=== PATIENT | female | born 1990 | race African-American/Black ===

== ENCOUNTER 2017-11-16 10:29 | Emergency (ER) | payer BC, OTHER ==
[~2017-11-16] VITALS: Ht 162.6 cm; Wt 74.8 kg
[~2017-11-16 10:29] MED LIST: BACTRIM DS TAB1 EAC1 ORAL; NORCO 5-325 TA1 EACH ORAL
[2017-11-16 11:17] LABS: APPEARANCE,URINE TURBID; BILIRUBIN, URINE NEGATIVE (NEGATIVE); GLUCOSE, URINE (UA) NEGATIVE (NEGATIVE); KETONES,URINE NEGATIVE (NEGATIVE); LEUKOCYTE ESTERASE ,URINE 1+ (NEGATIVE); NITRITE,URINE NEGATIVE (NEGATIVE); PH,URINE 6 (4.5-8.0); PROTEIN,URINE 1+ (NEGATIVE); UROBILINOGEN,URINE NORMAL MG/DL (0.0-1.0)
[2017-11-16 11:18] LABS: COLOR,URINE YELLOW
[2017-11-16 12:33] VITALS: BP 128/75
--- NOTE | 2017-11-16 12:37 | Emergency Room Report ---
History of Present Illness General Chief Complaint: Complications Source: Patient Present Illness [facility] Patient present with complaints of vaginal spotting and cramping Reports that she had ectopic last March which she had surgery for Patient did have a menstrual cycle last month however sounds to be different than her usual menstrual cycle Denies any vomiting denies any fevers or chills Denies any low back pain Denies any recent fall or trauma Allergies: Coded Allergies: PENICILLINS (Unverified Allergy, Unknown, 10/19/14) Patient History Past Medical History: see triage record Pertinent Family History: none Reviewed Nursing Documentation: PMH: Agreed; PSxH: Agreed Nursing Documentation-PMH Past Medical History: No History, Except For Hx Cardiac Problems: No - ECTOPIC Review of Systems All Other Systems: negative except mentioned in HPI Physical Exam Vital Signs Date Time Temp Pulse Resp B/P (MAP) Pulse Ox O2 Delivery O2 Flow Rate FiO2 11/16/17 10:31 97.7 96 20 132/77 99 Room Air 97.7 Sp02 EP Interpretation: reviewed, normal General Appearance: well appearing, no apparent distress Head: normocephalic, atraumatic Eyes: bilateral eye PERRL, bilateral eye EOMI ENT: hearing grossly normal, normal pharynx, TMs + canals normal, uvula midline Neck: full range of motion, supple, no meningismus, no bony tend Respiratory: lungs clear, normal breath sounds, no rhonchi, no respiratory distress, no retraction, no accessory muscle use Cardiovascular #1: normal peripheral pulses, regular rate, rhythm, no edema, no gallop, no JVD, no murmur Gastrointestinal: normal bowel sounds, non tender, soft, no mass, no organomegaly, non-distended, no guarding, no hernia, no pulsatile mass, no rebound Genitourinary: no CVA tenderness Musculoskeletal: normal inspection Neurologic: oriented x3, responsive, 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, motor strength/ tone normal, sensory intact Psychiatric: mood/affect normal Skin: normal color, no rash, warm/dry, palpation normal Lymphatic: normal inspection, no adenopathy Medical Decision Making Diagnostic Impression: Primary Impression: abnormal vaginal bleeding Additional Impressions: possible early ectopic vs miscarriage ER Course With the patient's history and examination, multiple differentials considered, including but not limited to , ectopic , ovarian torsion, gastritis, cholecystitis, pancreatitis, appendicitis Patient's urine sample was positive for Hormone level shows 149 Patient does have ultrasound obtained which does not show any obvious acute pathology Unfortunately multiple differentials still remain possible Patient's last menstrual cycle could potentially have been a missed miscarriage Ectopic cannot be fully ruled out Early cannot be fully ruled out Patient requires repeat beta hCG performance along with serial ultrasounds This was discussed with the patient, she appeared agitated, and upset Unfortunately I cannot provide her a clear-cut diagnosis at this time I did try my best to explain that And made the follow-up explanation as best I could as well Patient provided with list of clinics and will return with any worsening symptoms Labs Test 11/16/17 10:40 11/16/17 10:50 Urine Color Yellow Urine Appearance Turbid Urine pH 6 (4.5-8.0) Urine Specific [place] 1.020 (1.005-1.035) Urine Protein 1+ (NEGATIVE) Urine Glucose (UA) Negative (NEGATIVE) Urine Ketones Negative (NEGATIVE) Urine Occult Blood 3+ (NEGATIVE) Urine Nitrite Negative (NEGATIVE) Urine Bilirubin Negative (NEGATIVE) Urine Urobilinogen Normal MG/DL (0.0-1.0) Urine Leukocyte Esterase 1+ (NEGATIVE) Urine RBC 5-10 /HPF (0 - 2) Urine WBC 2-4 /HPF (0 - 2) Urine Squamous Epithelial Cells Many /LPF (NONE/OCC) Urine Bacteria Few /HPF (NONE) Urine Mucus Moderate /LPF (NONE/OCC) Urine HCG, Qualitative Positive (NEGATIVE) Human Chorionic Gonadotropin, Quant 149 mIU/mL (1-6) CT/MRI/US Diagnostic Results CT/MRI/US Diagnostic Results : Impression Pelvic ultrasound:IMPRESSION: Suspicion of pelvic congestion syndrome. Correlate clinically. No intrauterine . Consider follow up quantitative beta hCG and ultrasound. Fundal uterine fibroid Last Vital Signs Date Time Temp Pulse Resp B/P (MAP) Pulse Ox O2 Delivery O2 Flow Rate FiO2 11/16/17 12:33 97.7 69 18 128/75 99 Room Air 97.7 Status: improved Disposition: HOME, SELF-CARE Condition: Stable Referrals: NOT CHOSEN [facility]/MD,REFERRING (PCP) Patient Instructions: Threatened Miscarriage, [id number], First Trimester of , [id number], Ectopic , Pqif-qy-Prob, Dysfunctional Uterine Bleeding Additional Instructions: please note that you have been provide multiple possible diagnoses. Your hormone level is 149 This requires to be repeated in 3-4 days With a repeat ultrasound for determination and more definitive diagnosis Heidi Sawant DO November 16, 2017 12:37
--- NOTE | 2017-11-16 13:49 | Diagnostic Imaging Report ---
Indication: Positive test. Vaginal spotting Technique: Grayscale and duplex Doppler imaging of the pelvis performed utilizing a transabdominal scan and endovaginal scan. Comparison: None Findings: There is no intrauterine demonstrated. The endometrium is moderately thick measuring 18 mm. There is a partially calcified mass in the fundus measuring 1.5 cm. This is consistent with a fibroid. There is a fairly marked vascularity as demonstrated by color flow images around the uterus and within the pelvis. Consider pelvic congestion syndrome. The ovaries are seen and appear normal bilaterally. Uterus measures 7.5 x 5.7 x 4.1 cm. Right ovary 1.8 x 2.5 x 1.3 cm. Left ovary 2.9 x 2.7 x 1.7 cm. IMPRESSION: Suspicion of pelvic congestion syndrome. Correlate clinically. No intrauterine . Consider follow up quantitative beta hCG and ultrasound. Fundal uterine fibroid
== END 2017-11-16 12:36 | disposition home or self-care (01) ==
LOC: EMR 11:57
DX: N93.9 Abnormal uterine and vaginal bleeding, unspecified (principal); Z88.0 Allergy status to penicillin; D25.9 Leiomyoma of uterus, unspecified
CPT/HCPCS: 36415; 76801; 81003; 81025; 84702; 99284

== ENCOUNTER 2018-03-14 09:12 | Emergency (ER) | payer SELFPAY ==
[~2018-03-14] VITALS: Ht 162.6 cm; Wt 72.6 kg
[2018-03-14 09:17] VITALS: BP 119/67
[2018-03-14] MEDS ORDERED: NKM (09:19)
[2018-03-14 09:43] LABS: APPEARANCE,URINE SLIGHTLY CLOUDY; BILIRUBIN, URINE NEGATIVE (NEGATIVE); COLOR,URINE PALE YELLOW; GLUCOSE, URINE (UA) NEGATIVE (NEGATIVE); KETONES,URINE NEGATIVE (NEGATIVE); LEUKOCYTE ESTERASE ,URINE 3+ (NEGATIVE); NITRITE,URINE NEGATIVE (NEGATIVE); PH,URINE 6 (4.5-8.0); PROTEIN,URINE 2+ (NEGATIVE); UROBILINOGEN,URINE NORMAL MG/DL (0.0-1.0)
[2018-03-14] MEDS ORDERED: MACROBID100 MG ORAL (10:13)
[2018-03-14] MEDS ORDERED: NITROFURANTOIN100 M2 ORAL (10:13)
--- NOTE | 2018-03-14 10:14 | Emergency Room Report ---
History of Present Illness General Chief Complaint: Female Urogenital Problems Source: Patient Present Illness HPI Pt. c/o dysuria, urgency, frequency for two days. No fever, no flank/abd/back pain. + history of UTIs. No vaginal d/c. Monogamous. Allergies: Coded Allergies: PENICILLINS (Unverified Allergy, Unknown, 10/19/14) Patient History Last Menstrual Period: on period Nursing Documentation-[facility] Past Medical History: No Stated History Hx Cardiac Problems: No - ECTOPIC Review of Systems Constitutional: Reports: no symptoms Eye: Reports: no symptoms ENT: Reports: no symptoms Respiratory: Reports: no symptoms Cardiovascular: Reports: no symptoms Gastrointestinal: Reports: no symptoms Genitourinary: Reports: no symptoms Musculoskeletal: Reports: no symptoms Skin: Reports: no symptoms Psychiatric: Reports: no symptoms Neurological: Reports: no symptoms Endocrine: Reports: no symptoms Hematologic/Lymphatic: Reports: no symptoms Allergic: Reports: no symptoms All Other Systems: negative except mentioned in HPI Physical Exam Vital Signs Date Time Temp Pulse Resp B/P (MAP) Pulse Ox O2 Delivery O2 Flow Rate FiO2 03/14/18 09:17 98.2 82 14 119/67 97 Room Air 98.2 Sp02 EP Interpretation: reviewed, normal General Appearance: normal inspection, well appearing, no apparent distress, alert, GCS 15, non-toxic Head: normocephalic, atraumatic Eyes: bilateral eye normal inspection, bilateral eye PERRL, bilateral eye EOMI ENT: normal ENT inspection, hearing grossly normal, normal pharynx, no angioedema, normal voice, moist mucus membranes Neck: normal inspection, full range of motion, supple, no meningismus, no bony tend Respiratory: normal inspection, lungs clear, normal breath sounds, no rhonchi, no respiratory distress, no retraction, no accessory muscle use, no wheezing Cardiovascular #1: normal inspection, regular rate, rhythm, no edema Gastrointestinal: normal inspection, normal bowel sounds, non tender, soft, no mass, non-distended Musculoskeletal: gait/station normal, normal range of motion Neurologic: normal inspection, alert, oriented x3, responsive, motor strength/ tone normal Psychiatric: normal inspection, judgement/insight normal, memory normal Suicide Risk Assessment: Suicidal Ideation: No Had intent to initiate attempt: No Pt's plan for suicide attempt: No Has means to complete attempt: No Skin: normal inspection, normal color, no rash, warm/dry Medical Decision Making Diagnostic Impression: Primary Impression: UTI (urinary tract infection) Last Vital Signs Date Time Temp Pulse Resp B/P (MAP) Pulse Ox O2 Delivery O2 Flow Rate FiO2 03/14/18 09:17 97.6 82 14 119/67 97 Room Air 97.6 Disposition: HOME, SELF-CARE Scripts Nitrofurantoin Monohyd/M-Cryst (Nitrofurantoin Bates-Mcr 100 mg) 100 Mg Capsule 100 MG ORAL Q12H, #20 CAP Prov: Michael Cyr M.D. 03/14/18 Nitrofurantoin Monohyd/M-Cryst* (MACROBID 100 MG*) 100 Mg Capsule 100 MG ORAL EVERY 12 HOURS, #20 CAP Prov: Michael Cyr M.D. 03/14/18 Referrals: NOT CHOSEN [facility]/,REFERRING (PCP) Patient Instructions: Urinary Tract Infection Michael Cyr M.D. Mar 14, 2018 10:14
[2018-03-14 10:18] VITALS: BP 119/67
== END 2018-03-14 10:18 | disposition home or self-care (01) ==
LOC: EMR 09:40
DX: N39.0 Urinary tract infection, site not specified (principal); Z88.0 Allergy status to penicillin
CPT/HCPCS: 81001; 87086; 87181; 99283

== ENCOUNTER 2018-04-17 19:50 | Emergency (ER) | payer SELFPAY ==
[~2018-04-17] VITALS: Ht 162.6 cm; Wt 72.6 kg
[~2018-04-17 19:50] MED LIST changes: +MACROBID100 MG ORAL; +NITROFURANTOIN100 M2 ORAL; +NKM
[2018-04-17 19:57] VITALS: BP 117/75
--- NOTE | 2018-04-17 20:29 | Emergency Room Report ---
History of Present Illness General Chief Complaint: Female Urogenital Problems Source: Patient, Medical Record Present Illness HPI Patient presents with complaints of vaginal discharge Whitish discharge Reporting that she feels like she has an infection Denies any dysuria frequency denies any back or flank pain Denies any fevers or chills Denies any vomiting Patient is sexually active Denies any pelvic pain Denies any rash Allergies: Coded Allergies: PENICILLINS (Unverified Allergy, Unknown, 04/17/18) Patient History Past Medical History: see triage record Pertinent Family History: none Last Menstrual Period: Mar 2018 Reviewed Nursing Documentation: PMH: Agreed; PSxH: Agreed Nursing Documentation-PMH Past Medical History: No History, Except For Hx Cardiac Problems: No - ECTOPIC Review of Systems All Other Systems: negative except mentioned in HPI Physical Exam Vital Signs Date Time Temp Pulse Resp B/P (MAP) Pulse Ox O2 Delivery O2 Flow Rate FiO2 04/17/18 19:57 98.4 71 16 117/75 98 Room Air Sp02 EP Interpretation: reviewed, normal General Appearance: well appearing, no apparent distress Head: normocephalic, atraumatic Eyes: bilateral eye PERRL, bilateral eye EOMI ENT: hearing grossly normal, normal pharynx Neck: supple Respiratory: lungs clear Cardiovascular #1: regular rate, rhythm Gastrointestinal: non tender, soft, no mass Genitourinary: no CVA tenderness, other - Pelvic deferred Musculoskeletal: normal inspection Neurologic: alert, oriented x3, responsive Skin: normal color, no rash Lymphatic: no adenopathy Medical Decision Making Diagnostic Impression: Primary Impression: Vaginosis ER Course Given the patient's history and presentation multiple differentials considered Given the clinical description Patient is treated for bacterial vaginosis Patient does not have any urinary symptoms further urine test has not been performed Patient understands that she requires close gynecology workup For further culture and testing Last Vital Signs Date Time Temp Pulse Resp B/P (MAP) Pulse Ox O2 Delivery O2 Flow Rate FiO2 04/17/18 19:57 98.4 71 16 117/75 98 Room Air Status: unchanged Disposition: HOME, SELF-CARE Condition: Stable Additional Instructions: Patient is provided with the discharge instructions notified to follow up with primary doctor in the next 2-3 days otherwise return to the er with any worsening symptoms. Please note that this report is being documented using [employer] technology. This can lead to erroneous entry secondary to incorrect interpretation by the dictating instrument. Heidi Sawant DO Apr 17, 2018 20:29
[2018-04-17] MEDS ORDERED: METROGEL-VAGINA70 G1 VAGIN (20:35)
[2018-04-17 21:00] VITALS: BP 117/75
== END 2018-04-17 21:00 | disposition home or self-care (01) ==
LOC: EMR 21:00
DX: N76.0 Acute vaginitis (principal); Z88.0 Allergy status to penicillin
CPT/HCPCS: 99282

== ENCOUNTER 2019-10-25 22:52 | Emergency (ER) | payer SELFPAY ==
[~2019-10-25] VITALS: Ht 162.6 cm; Wt 77.1 kg
[~2019-10-25 22:52] MED LIST changes: +METROGEL-VAGINA70 G1 VAGIN
[2019-10-25 23:10] VITALS: BP 124/83
[2019-10-25 23:12] VITALS: BP 124/83
--- NOTE | 2019-10-25 23:12 | NUR ---
ED Nurse Note: Walk-in patient presents with complaints of ingrown hair in genital area that is causing 10/10 pain.
--- NOTE | 2019-10-25 23:20 | NUR ---
ED Nurse Note: ERMD at bedside to peform I&D accompanied by Jackie STAPLETON.
[2019-10-25] MEDS ORDERED: MUPIROCIN22 GM TOPIC (23:22)
--- NOTE | 2019-10-25 23:25 | NUR ---
ER DISCHARGE NOTE: Patient is cleared to be discharged per ERMD, patient is A&Ox4, ambulatory with steady gait. Patient verbalized understanding of discharge instructions. ID band removed and patient departed with all belongings in stable condition.
--- NOTE | 2019-10-25 23:28 | Emergency Room Report ---
History of Present Illness General Chief Complaint: Vaginal Source: Patient Present Illness HPI Patient is a 28-year-old female denies any significant past medical history who presents to the ER complaining of ingrown hair in her inguinal region for the past 3 days. Patient states that she was seen in urgent care 2 days ago and was given Bactrim. Patient states that she has persistent pain. She denies any fever or chills. Patient states that she had wax the hair in her genital region approximately 3 weeks ago. She denies any discharge. Allergies: Coded Allergies: PENICILLINS (Unverified Allergy, Unknown, 04/17/18) COVID-19 Screening Contact w/high risk pt: No Recent Travel to affected area: No Experienced COVID-19 symptoms?: No Patient History Past Medical History: none Past Surgical History: none Social History: Denies: smoking, alcohol use, drug use Last Menstrual Period: 09-27-2019 Now: No Nursing Documentation-PM Past Medical History: No History, Except For Hx Cardiac Problems: No - ECTOPIC Review of Systems All Other Systems: negative except mentioned in HPI Physical Exam Vital Signs Date Time Temp Pulse Resp B/P (MAP) Pulse Ox O2 Delivery O2 Flow Rate FiO2 10/25/19 23:10 98.2 79 18 124/83 (97) 18 Sp02 EP Interpretation: reviewed, normal General Appearance: no apparent distress, alert, GCS 15, non-toxic Head: normocephalic, atraumatic Eyes: bilateral eye normal inspection, bilateral eye PERRL ENT: hearing grossly normal, normal pharynx, no angioedema, normal voice Neck: full range of motion, supple/symm/no masses Respiratory: chest non-tender, lungs clear, normal breath sounds, speaking full sentences Cardiovascular #1: regular rate, rhythm, no edema Gastrointestinal: normal bowel sounds, non tender, soft, non-distended, no guarding, no rebound Rectal: deferred Genitourinary: no CVA tenderness, other - 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 suprapubic small abscess with no surrounding cellulitis small area of fluctuance no discharge Musculoskeletal: back normal, normal range of motion, gait/station normal, non- tender Neurologic: alert, motor strength/tone normal, oriented x3, sensory intact, responsive, speech normal Psychiatric: judgement/insight normal, memory normal, mood/affect normal, no suicidal/homicidal ideation Lymphatic: no adenopathy Procedures Incision and Drainage Incision and Drainage : Consent: Verbal Site: R suprapubic abscess Blade Size: 18 gauge needle I & D Procedure: betadine prep Wound's Depth, Shape: superficial Patient Tolerated: Well Complications: None Progress pus and blood expressed from needle site Medical Decision Making Diagnostic Impression: Primary Impression: Abscess ER Course Needle aspiration performed. Patient reported improvement of symptoms. Patient already on Bactrim. I have ordered for topical antibiotics as well. After discussing risks and benefits of further diagnostics, treatment plans, as well as indications for and risks of admission, the patient is agreeable to being discharged home. I have explained that their evaluation and treatment in the emergency department today is an important step towards them achieving better health but that their evaluation today is not intended to replace further evaluation and treatment by a physician in their local clinic. I have explained that while the current findings suggest no immediate life threatening emergency they will require further evaluation and treatment by a physician of their choice in their area. They understand that it will be necessary for them to review the final reports of their ED visit with their clinic physician. We have reviewed indications for return to the Emergency Department. I have explained that additional time may need to pass and/or additional testing as an outpatient may be necessary before a definitive diagnosis can be made. They tell me they are willing to follow up as instructed within the timeframe I recommend. They appear to understand what we discussed. Additionally they understand that if they are unable to be seen by an outpatient physician they are welcome, and in fact should, return to the Emergency Department for a repeat evaluation. The patient is stable at time of discharge. Last Vital Signs Date Time Temp Pulse Resp B/P (MAP) Pulse Ox O2 Delivery O2 Flow Rate FiO2 10/25/19 23:10 98.2 79 18 124/83 (97 18 Disposition: HOME, SELF-CARE Condition: Stable Scripts Mupirocin* (MUPIROCIN*) 22 Gm Oint...g. 1 APPLIC TOPIC THREE TIMES A DAY, #30 GM Prov: Dilcia Paris M.D. 10/25/19 Referrals: [facility]ie Perez [facility] Patient Instructions: Abscess, [id number] Additional Instructions: The patient was provided with discharge instructions, notified to follow-up with a primary care doctor and or specialist in the next 24-48 hours, and to return to the ED if they have worsening of their symptoms. Please note that this report is being documented using [employer] technology. This can lead to erroneous entry secondary to incorrect interpretation by the dictating instrument. Dilcia Paris M.D. October 25, 2019 23:28
== END 2019-10-25 23:25 | disposition home or self-care (01) ==
LOC: EMR 23:10
DX: L02.214 Cutaneous abscess of groin (principal); Z88.0 Allergy status to penicillin
CPT/HCPCS: 10060; 99282